=== PATIENT | female | born 1995 | race African-American/Black ===

== ENCOUNTER 2018-09-04 04:50 | Emergency (ER) | payer SELFPAY ==
[~2018-09-04] VITALS: Ht 162.6 cm; Wt 107.0 kg
[2018-09-04 05:03] VITALS: BP 148/99
[2018-09-04] MEDS ORDERED: HYDR-3164 PO (05:26)
[2018-09-04] MEDS ORDERED: MELO15TA6 PO (05:26)
[2018-09-04] MEDS ORDERED: IBUPROFEN 400 MG TABLET. PO ONE (05:30)
[2018-09-04] MEDS ORDERED: HYDROcodone/APAP 5/325MG 1 TAB TABLET PO ONE (05:30)
--- NOTE | 2018-09-04 05:36 | PHYS DOC ---
Past Medical History Past Medical History: No Pertinent History Past Surgical History: No Surgical History Alcohol Use: None Drug Use: Marijuana Adult General Chief Complaint Chief Complaint: MUSCLE SPASM/CRAMP HPI HPI Patient is a 22 year old female who presents with numbness in the toes. Patient has been having symptoms chronically. She cannot identify any aggravating or alleviating factors. She describes episodes of numbness and cramps in the toes bilaterally with the right being worse and more frequent than the left. Symptoms are worse sometimes at night. Patient states she does wear loose shoes at baseline. She did not sustain any injury. She has no additional complaints over the rest of her body. Review of Systems Review of Systems Constitutional: Denies fever Eyes: Denies change in visual acuity HENT: Denies nasal congestion Respiratory: Denies : Denies Musculoskeletal: Denies back pain Integument: Denies rash or skin lesions Neurologic: Denies headache Endocrine: Denies polyuria All other systems were reviewed and found to be within normal limits, except as documented in this note. Current Medications Current Medications Current Medications Medications (Trade) Dose Ordered Sig/James Start Time Stop Time Status Last Admin Dose Admin Acetaminophen/ Hydrocodone Bitart (Lortab 5/325) 2 tab 1X ONCE 09/04/18 05:30 09/04/18 05:31 UNV Ibuprofen (Motrin) 800 mg 1X ONCE 09/04/18 05:30 09/04/18 05:31 UNV Allergies Allergies Allergies Coded Allergies Type Severity Reaction Last Updated Verified No Known Drug Allergies 01/21/14 No Physical Exam Physical Exam Constitutional: Well developed, well nourished, no acute distress, non-toxic appearance HENT: Normocephalic, atraumatic, bilateral external ears normal, oropharynx moist Eyes: PERRLA, EOMI, conjunctiva normal Neck: Normal range of motion Skin: Warm, dry, no erythema, no rash Back: No tenderness Extremities: Normal examination of the bilateral feet but + exquisite TTP b/w 2nd and 3rd toes over plantar surface. Sensation to light touch intact and 5/5 motor strength of feet/toes Neurologic: Alert and oriented X 3 Psychologic: Affect normal Current Patient Data Vital Signs Vital Signs Date Time Temp Pulse Resp B/P (MAP) Pulse Ox O2 Delivery O2 Flow Rate FiO2 09/04/18 05:03 98.3 101 16 148/99 (115) 95 Room Air 98.3 EKG EKG [] Radiology/Procedures Radiology/Procedures [] Course & Med Decision Making Course & Med Decision Making Pertinent Labs and Imaging studies reviewed. (See chart for details) is evaluated for some paresthesias and cramping of the toes which has been chronic but was worse overnight this evening so she came to the ER. Clinically, I have suspicion that the patient is suffering from Espinosa's neuroma. I cannot diagnose this in the emergency department as MRI would be necessary. Patient does not have insurance. She is provided a list of local clinics that she could try to establish care. She is advised that a inventory analyst could possibly give some injections or further evaluate her likely diagnosis. She is also recommended to follow-up at the [employer] store as there are sometimes inserts which can be of benefit with this diagnosis. She is provided mode back to take 15 mg daily. She is provided some [place] to use at night only to help her sleep and with the pain. Patient is discharged home. She is agreeable to the plan of care. Opiate precautions are discussed. Return to the ER for any new or worsening symptoms. Dragon Disclaimer Dragon Disclaimer This electronic medical record was generated, in whole or in part, using a voice recognition dictation system. Departure Departure Impression: Primary Impression: Espinosa neuroma Disposition: 01 HOME, SELF-CARE Condition: GOOD Patient Instructions: Espinosa's Neuroma (Interdigital Plantar Neuroma)-[employer] Additional Instructions: You have a Espinosa's Neuroma. The best treatment for you is evaluation by a inventory analyst. You may also benefit though from going to the "[employer]" store as they may have some inserts/alternatives which may be of benefit to you. Scripts Hydrocodone/Apap 5-325 (NORCO 5-325 TABLET) 1 Each Tablet 1-2 EACH PO QHS PRN for SEVERE PAIN, #30 as needed for pain Prov: TAYLOR ALMARAZ DO 09/04/18 Meloxicam (MOBIC) 15 Mg Tablet 15 MG PO DAILY for 30 Days, #30 TAB 3 Refills Prov: TAYLOR ALMARAZ DO 09/04/18 TAYLOR ALMARAZ DO Sep 04, 2018 05:36
== END 2018-09-04 05:42 | disposition home or self-care (01) ==
LOC: ER 04:50
DX: G57.63 Lesion of plantar nerve, bilateral lower limbs (principal)
CPT/HCPCS: 99283

== ENCOUNTER 2019-03-26 23:38 | Emergency (ER) | payer SELFPAY ==
[~2019-03-26] VITALS: Ht 165.1 cm; Wt 85.7 kg
[~2019-03-26 23:38] MED LIST: HYDR-3164 PO; MELO15TA6 PO
[2019-03-26 23:44] VITALS: BP 145/94
[2019-03-27] MEDS ORDERED: HYDR-3164 PO (00:12)
[2019-03-27] MEDS ORDERED: PENI500T PO (00:12)
--- NOTE | 2019-03-27 00:12 | PHYS DOC ---
Past Medical History Past Medical History: No Pertinent History Past Surgical History: Other Additional Past Surgical Histo: RIGHT ELBOW SURG. Alcohol Use: None Drug Use: Marijuana Adult General Chief Complaint Chief Complaint: DENTAL PROBLEM HPI HPI 23-year-old female presents with dental pain. She states it's been progressive over the last several days. She states the pain is currently 10 out of 10. She is unable to get comfortable or even rest. She states cold makes it much worse.[] Review of Systems Review of Systems HENT: Per history of present illness[] All other systems were reviewed and found to be within normal limits, except as documented in this note. Current Medications Current Medications Current Medications Medications (Trade) Dose Ordered Sig/James Start Time Stop Time Status Last Admin Dose Admin Acetaminophen/ Hydrocodone Bitart (Lortab 5/325) 2 tab 1X ONCE 03/27/19 00:30 03/27/19 00:31 Allergies Allergies Allergies Coded Allergies Type Severity Reaction Last Updated Verified No Known Drug Allergies 01/21/14 No Physical Exam Physical Exam Constitutional: Well developed, well nourished, no acute distress, non-toxic appearance. [] HENT: Her teeth are carious but I do not appreciate any fracture no surrounding gingival erythema or abscess. [] Eyes: PERRLA, EOMI, conjunctiva normal, no discharge. [] Neck: Normal range of motion, no tenderness, supple, no stridor. [] Cardiovascular:Heart rate regular rhythm, no murmur [] Lungs & Thorax: Bilateral breath sounds clear to auscultation [] Abdomen: Bowel sounds normal, soft, no tenderness, no masses, no pulsatile masses. [] Skin: Warm, dry, no erythema, no rash. [] Psychologic: Anxious very tearful[] Current Patient Data Vital Signs Vital Signs Date Time Temp Pulse Resp B/P (MAP) Pulse Ox O2 Delivery O2 Flow Rate FiO2 03/26/19 23:44 98.1 56 18 145/94 (111) 98 Room Air 98.1 EKG EKG [] Radiology/Procedures Radiology/Procedures [] Course & Med Decision Making Course & Med Decision Making Pertinent Labs and Imaging studies reviewed. (See chart for details) [] Dragon Disclaimer Dragon Disclaimer This electronic medical record was generated, in whole or in part, using a voice recognition dictation system. Departure Departure Impression: Primary Impression: Pain, dental Additional Impression: Pain due to dental caries Disposition: HOME, SELF-CARE Condition: STABLE Referrals: NO PCP (PCP) Patient Instructions: Dental Caries Additional Instructions: He need to follow with a dentist within the next 2-3 days. Scripts Penicillin V Potassium (PENICILLIN V POTASSIUM) 500 Mg Tablet 1 TAB PO QID, #40 TAB Prov: CANDACE DIAZ DO 03/27/19 Hydrocodone/Apap 5-325 (NORCO 5-325 TABLET) 1 Each Tablet 1 TAB PO PRN Q6HRS PRN for PAIN, #12 TAB 0 Refills Prov: CANDACE DIAZ DO 03/27/19 Problem Qualifiers CANDACE DIAZ DO Mar 27, 2019 00:12
[2019-03-27] MEDS ORDERED: HYDROcodone/APAP 5/325MG 1 TAB TABLET PO ONE (00:30)
== END 2019-03-27 00:20 | disposition home or self-care (01) ==
LOC: ER 03-27 00:09
DX: K02.9 Dental caries, unspecified (principal)
CPT/HCPCS: 99283

== ENCOUNTER 2019-04-28 15:23 | Emergency (ER) | payer SELFPAY ==
[~2019-04-28] VITALS: Ht 165.1 cm; Wt 84.0 kg
[~2019-04-28 15:23] MED LIST changes: +PENI500T PO
[2019-04-28 15:33] VITALS: BP 143/85
[2019-04-28] MEDS ORDERED: IBUPROFEN 200 MG TABLET. PO ONE (15:45)
[2019-04-28] MEDS ORDERED: METH4TAB2 PO (16:03)
--- NOTE | 2019-04-28 16:04 | PHYS DOC ---
Past Medical History Past Medical History: No Pertinent History Past Surgical History: Other Additional Past Surgical Histo: RIGHT ELBOW SURG. Additional Information: 7 CIGS/DAY Alcohol Use: None Drug Use: Marijuana Adult General Chief Complaint Chief Complaint: FACE PROBLEM HPI HPI Patient is a 23 year old female who presents with right-sided throat soreness with right lower swollen lymph node that started today. Patient denies recent illness or fever. Patient rates her pain a 7 out of 10. Review of Systems Review of Systems Constitutional: Denies fever or chills [] Eyes: Denies change in visual acuity, redness, or eye pain [] HENT: Denies nasal congestion. sore throat [] Respiratory: Denies cough or shortness of breath [] Cardiovascular: No additional information not addressed in HPI [] GI: Denies abdominal pain, nausea, vomiting, bloody stools or diarrhea [] : Denies dysuria or hematuria [] Musculoskeletal: Denies back pain or joint pain [] Integument: Denies rash or skin lesions [] Neurologic: Denies headache, focal weakness or sensory changes [] Endocrine: Denies polyuria or polydipsia [] All other systems were reviewed and found to be within normal limits, except as documented in this note. Current Medications Current Medications Current Medications Medications (Trade) Dose Ordered Sig/James Start Time Stop Time Status Last Admin Dose Admin Ibuprofen (Motrin) 600 mg 1X ONCE 04/28/19 15:45 04/28/19 15:46 DC 04/28/19 15:46 600 MG Allergies Allergies Allergies Coded Allergies Type Severity Reaction Last Updated Verified No Known Drug Allergies 01/21/14 No Physical Exam Physical Exam Constitutional: Well developed, well nourished, no acute distress, non-toxic appearance. [] HENT: Normocephalic, atraumatic, bilateral external ears normal, oropharynx moist, no oral exudates, nose normal. Right sided submandibular lymph node edema.[] Eyes: PERRLA, EOMI, conjunctiva normal, no discharge. [] Neck: Normal range of motion, no tenderness, supple, no stridor. [] Cardiovascular:Heart rate regular rhythm, no murmur [] Lungs & Thorax: Bilateral breath sounds clear to auscultation [] Abdomen: Bowel sounds normal, soft, no tenderness, no masses, no pulsatile masses. [] Skin: Warm, dry, no erythema, no rash. [] Back: No tenderness, no CVA tenderness. [] Extremities: No tenderness, no cyanosis, no clubbing, ROM intact, no edema. [] Neurologic: Alert and oriented X 3, normal motor function, normal sensory function, no focal deficits noted. [] Psychologic: Affect normal, judgement normal, mood normal. [] Current Patient Data Vital Signs Vital Signs Date Time Temp Pulse Resp B/P (MAP) Pulse Ox O2 Delivery O2 Flow Rate FiO2 04/28/19 15:33 99.2 78 18 143/85 (104) 97 Room Air 99.2 EKG EKG [] Radiology/Procedures Radiology/Procedures [] Course & Med Decision Making Course & Med Decision Making Patient is a 23 year old female who presents with right-sided throat soreness with right lower swollen lymph node that started today. Patient denies recent illness or fever. Patient rates her pain a 7 out of 10. Speaks in full clear sentences. Patient has no trouble breathing or swallowing and she is not drooling. Patient denies shortness of breath, chest pain, recent illness, nausea, vomiting, fever. Throat is reddened but there is no swelling or exudates. Lungs are clear to auscultation all lobes. Bilateral tympanic membranes are pearly white. Patient denies any nasal congestion or cough. Skin pink warm and dry. Mucous membranes are moist. Rapid strep is negative. Right sided submandibular lymph node swelling and tenderness with palpation. I did with Dr Stephens on this patient. Patiently put on a Medrol Dosepak and to f ollow-up with her primary care if needed. Patient is to return to the ER immediately if she starts having increased pain, fever, cannot swallow, shortness of air, drooling. Dragon Disclaimer Dragon Disclaimer This electronic medical record was generated, in whole or in part, using a voice recognition dictation system. Departure Departure Impression: Primary Impression: Throat pain in adult Disposition: 01 HOME, SELF-CARE Condition: STABLE Referrals: NO PCP (PCP) Patient Instructions: Sore Throat Additional Instructions: Return to the ED for inability to swallow, drooling, fever, increased pain. Take medication as prescribed. Scripts Methylprednisolone (MEDROL) 4 Mg Tab.ds.pk 1 PKG PO UD, #1 PKG Prov: GLORIA RAMEY BI TECHNICAL LEAD 04/28/19 GLORIA RAMEY APRN Apr 28, 2019 16:04
== END 2019-04-28 16:08 | disposition home or self-care (01) ==
LOC: ER 15:23
DX: R07.0 Pain in throat (principal); F17.210 Nicotine dependence, cigarettes, uncomplicated
CPT/HCPCS: 87070; 87880; 99283

== ENCOUNTER 2020-06-27 12:17 | Emergency (ER) | payer SELFPAY ==
[~2020-06-27] VITALS: Ht 167.6 cm; Wt 90.0 kg
[~2020-06-27 12:17] MED LIST changes: +METH4TAB2 PO
[2020-06-27 12:29] VITALS: BP 162/107
--- NOTE | 2020-06-27 12:45 | PHYS DOC ---
Past Medical History Past Medical History: No Pertinent History Past Surgical History: Other Additional Past Surgical Histo: RIGHT ELBOW SURG. Smoking Status: Current Every Day Smoker Additional Information: 6 CIG/DAY Alcohol Use: None Drug Use: Marijuana General Adult EDM: Chief Complaint: UPPER EXTREMITY PAIN HPI: HPI: Patient is a 24 year old female who had right elbow surgery 1 year ago and for the last week or so she has had intermittent pain and swelling to the right elbow. Patient denies any recent trauma. Patient denies any fever. Patient says the pain is worse when she wakes up in the morning. Patient states the pain is localized around the olecranon and radiates outward from there. Pain is moderate in severity. Review of Systems: Review of Systems: Constitutional: Denies fever or chills. [] Eyes: Denies change in visual acuity. [] HENT: Denies nasal congestion or sore throat. [] Respiratory: Denies cough or shortness of breath. [] Cardiovascular: Denies chest pain or edema. [] GI: Denies abdominal pain, nausea, vomiting, bloody stools or diarrhea. [] : Denies dysuria. [] Musculoskeletal: Denies back pain but has right right elbow pain Integument: Denies rash. [] Neurologic: Denies headache, focal weakness or sensory changes. [] Endocrine: Denies polyuria or polydipsia. [] Lymphatic: Denies swollen glands. [] Psychiatric: Denies depression or anxiety. [] Heart Score: Risk Factors: Risk Factors: DM, Current or recent (<one month) smoker, HTN, HLP, family history of CAD, obesity. Risk Scores: Score 0 - 3: 2.5% MACE over next 6 weeks - Discharge Home Score 4 - 6: 20.3% MACE over next 6 weeks - Admit for Clinical Observation Score 7 - 10: 72.7% MACE over next 6 weeks - Early Invasive Strategies Allergies: Allergies: Allergies Coded Allergies Type Severity Reaction Last Updated Verified No Known Drug Allergies 01/21/14 No Physical Exam: PE: Constitutional: Well developed, well nourished, no acute distress, non-toxic appearance. [] HENT: Normocephalic, atraumatic, bilateral external ears normal, no trismus, nose normal. [] Eyes: PERRLA, EOMI, conjunctiva normal, no discharge. [] Neck: Normal range of motion, no tenderness, supple, no stridor. [] Cardiovascular:Heart rate regular rhythm, peripheral pulses intact, cap refill brisk Lungs & Thorax: Bilateral breath sounds clear, no respiratory distress Abdomen: , soft, no tenderness, no masses, no pulsatile masses. [] Skin: Warm, dry, no erythema, no rash. [] Back: No tenderness, no CVA tenderness. [] Extremities: Scar to the right elbow, mild tenderness with mild limited range of motion with minimal swelling no erythema or warmth, neurovascular intact distally Neurologic: Alert and oriented X 3, normal motor function, normal sensory function, no focal deficits noted. [] Psychologic: Affect normal, judgement normal, mood normal. [] Current Patient Data: Vital Signs: Vital Signs Date Time Temp Pulse Resp B/P (MAP) Pulse Ox O2 Delivery O2 Flow Rate FiO2 06/27/20 12:29 98.2 77 18 162/107 (125) 99 Room Air 98.2 EKG: EKG: [] Radiology/Procedures: Radiology/Procedures: [][facility] [address] [place] [address] IMAGING REPORT Signed PATIENT: MALCOLM FRANCO RACCOUNT: [id number] : 1995 LOCATION: ER AGE: 24 SEX: F EXAM STATUS: PRE ER ORD. PHYSICIAN: YASMEEN SRINIVASAN MD REASON: RT POSTERIOR ELBOW PAIN X 1 WK, HX RT ELBOW SX 1 YR AGO, NO INJURY PROCEDURE: ELBOW RIGHT 3V 3 view study right elbow Clinical indications: Posterior elbow pain for one week. History of right elbow surgery one year ago. No recent injury. FINDINGS: Metallic surgical hardware is seen within the olecranon and proximal ulna. No acute fracture or dislocation or lytic process is seen. No significant arthritic change is seen. No right elbow joint effusion is seen. No significant soft tissue distention of the olecranon bursa is seen. IMPRESSION: No acute osseous abnormality. Electronically signed by: Claudia Zaragoza MD (06/27/2020 12:59 PM) [id number] DICTATED and SIGNED BY: CLAUDIA ZARAGOZA MD DATE: 06/27/20 2594 Course & Med Decision Making: Course & Med Decision Making Pertinent Labs and Imaging studies reviewed. (See chart for details) [] 24-year female with right elbow pain. Patient had surgery a year ago and over the last week is had increased pain and intermittent swelling. There is no evidence of fracture on x-ray. No evidence of septic joint on exam. Patient possibly has bursitis. Patient was placed on anti-inflammatories for pain. Dragon Disclaimer: Dragon Disclaimer: This electronic medical record was generated, in whole or in part, using a voice recognition dictation system. Departure Departure Impression: Primary Impression: Right elbow pain Disposition: HOME, SELF-CARE Condition: STABLE Referrals: NO PCP (PCP) KAVEH BURKETT II, MD 2-3 DAYS Patient Instructions: Bursitis Additional Instructions: EMERGENCY DEPARTMENT GENERAL DISCHARGE INSTRUCTIONS THANK YOU for coming to [facility] Emergency Department (ED) today and trusting us with your care. We trust that you had a positive experience in our Emergency Department. If you wish to speak to the department Management you can contact the [place] department supervisor at . YOUR FOLLOW UP INSTRUCTIONS ARE FOLLOWS: Do you have a private doctor? If you do not have a private doctor, please ask for a resource list of physicians or clinics that may be able to assist you with follow up care. The Emergency Physician has interpreted your x-rays. The X-ray specialist will also review them. If there is a change in the findings you will be notified in 48 hours when at all possible. A lab test or lab culture may have been done, your results will be reviewed and you will be notified if you need a change in treatment. ADDITIONAL INSTRUCTIONS AND INFORMATION Your care today has been supervised by a physician who is specially trained in emergency care. Many problems require more than one evaluation for a complete diagnosis and treatment. We recommend that you schedule your follow up appointment as recommended to ensure complete treatment of your illness or injury. If you are unable to obtain follow up care and continue to have a problem, or if your condition worsens we recommend that you return to the ED. We are not able to safely determine your condition over the phone nor are we able to give sound medical advice over the phone. For these safety reasons, if you call for medical advice we will ask you to come to the ED for further evaluation If you have any questions regarding these discharge instructions please call the ED at . SAFETY INFORMATION In the interest of safety, wellness, and injury prevention; we encourage you to wear your seatbelt, if you smoke; quit smoking, and we encourage your family to use protective helmet for bicycling and other sporting events that present an increased risk for head injury. IF YOUR SYMPTOMS WORSEN OR NEW SYMPTOMS DEVELOP, OR YOU HAVE CONCERNS ABOUT YOUR CONDITION; OR IF YOUR CONDITION WORSENS WHILE YOU ARE WAITING FOR YOUR FOLLOW UP APPOINTMENT; EITHER CONTACT YOUR PRIMARY CARE DOCTOR, THE PHYSICIAN WHOSE NAME AND NUMBER YOU WERE GIVEN, OR RETURN TO THE ED IMMEDIATELY. Scripts Tramadol Hcl (ULTRAM) 50 Mg Tablet 1 TAB PO PRN Q6HRS PRN for pain MDD 4 Tablet(s) for 3 Days, #12 TAB 0 Refills Prov: YASMEEN SRINIVASAN MD 06/27/20 Ibuprofen (IBUPROFEN) 600 Mg Tablet 600 MG PO PRN Q6HRS PRN for PAIN, #20 TAB take with food or milk Prov: YASMEEN SRINIVASAN MD 06/27/20 Justicifation of Admission Dx: Justifications for Admission: Justification of Admission Dx: N/A YASMEEN SRINIVASAN MD Jun 27, 2020 12:45
--- NOTE | 2020-06-27 13:02 | RAD ---
3 view study right elbow Clinical indications: Posterior elbow pain for one week. History of right elbow surgery one year ago. No recent injury. FINDINGS: Metallic surgical hardware is seen within the olecranon and proximal ulna. No acute fracture or dislocation or lytic process is seen. No significant arthritic change is seen. No right elbow joint effusion is seen. No significant soft tissue distention of the olecranon bursa is seen. IMPRESSION: No acute osseous abnormality. Electronically signed by: Heri Zaragoza MD (06/27/2020 12:59 PM) [id number]
[2020-06-27] MEDS ORDERED: TRAM-48 PO (13:22)
[2020-06-27] MEDS ORDERED: IBUP-1007 PO (13:22)
== END 2020-06-27 13:45 | disposition home or self-care (01) ==
LOC: ER 12:17
DX: M25.521 Pain in right elbow (principal); R20.0 Anesthesia of skin; F17.200 Nicotine dependence, unspecified, uncomplicated; F12.90 Cannabis use, unspecified, uncomplicated; Z98.890 Other specified postprocedural states
CPT/HCPCS: 73080; 99283